=== PATIENT | female | born 1950 | race Caucasian/White ===

== ENCOUNTER → 2023-02-05 12:43 | Outpatient (REF) | payer MEDICARE, OTHER, SELFPAY ==
--- NOTE | 2023-02-05 12:52 | CA_ITS ---
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 Normal measured LV ejection fraction 60 65% with impaired relaxation filling pattern 2. Normal cardiac valvular Dopplers next 3. Normal RV systolic pressure 4. No gross pericardial effusion Findings Left Ventricle Normal left ventricular size, thickness, and systolic function. The visually estimated ejection fraction is between 60-65%. Spectral Doppler is indicative of an impaired relaxation filling pattern. E/E prime ratio is <8, consistent with normal filling pressures. Peak GLS is -14%, which is reduced Right Ventricle Normal right ventricular cavity size and systolic function. Atria Both atria are normal in size. There is no evidence of interatrial shunt. Aortic Valve Normal aortic valve structure and function. There is no aortic valve stenosis. There is no aortic valve regurgitation. Mitral Valve Normal mitral valve structure and function. There is trace mitral valve regurgitation. There is no mitral valve stenosis. Pulmonic Valve The pulmonic valve is likely normal. There is trace pulmonic valve regurgitation. Tricuspid Valve Normal tricuspid valve structure. There is trace tricuspid valve regurgitation. The right ventricular systolic pressure is normal. The right ventricular systolic pressure is 25 mmHg. Normal right atrial pressure. There is no evidence of pulmonary hypertension. Great Vessels All visible segments of the aorta are normal in size. The pulmonary artery was not well visualized. Venous The inferior vena cava is normal in size and collapses greater than 50% with inspiration. Pericardium/Pleural There is no evidence of pericardial effusion. Prior Study Comparison No prior study available for comparison. Measurements 2D Linear Measurements IVSd: 0.77 0.6-0.9/0.6-1.0 cm LVIDd: 4.14 3.9-5.3/4.2-5.9 cm LVIDd Index: 2.65 2.4-3.2/2.2-3.1 cm/m2 LVIDs: 2.82 2.0-3.6 cm LVPWd: 0.80 0.7-1.1 cm LA Diam: 2.80 2.7-3.8/3.0-4.0 cm LAIDs Index: 1.79 1.5-2.3 cm/m2 LV Mass: 119.11 67-162/88-224 g LV Mass Index: 76.35 43-95/49-115 g/m2 LVOT Diam: 2.10 3.0+(-)1.3 cm 2D Systolic Function EF 2C: 61.00 >55% Mitral Valve MV Pk E: 0.66 MV PK A: 0.87 MV Decel Time: 220.00 E/A: 0.80 E'Lateral: 3.81 E'Medial: 3.59 E/E' Med: 18.30 E/E' Lat: 17.20 PHT: 64.00 MVA PHT: 3.44 Decel [place]: 2.98 Aortic Valve AoV Pk Donald: 0.90 AoV Pk Grad: 3.00 KURTIS: 3.30 LVOT LVOT Pk Donald: 0.87 LVOT Mn Donald: 0.60 LVOT VTI: 0.19 LVOT Pk Grad: 3.00 LVOT Mn Grad: 2.00 LVOT Diam: 2.10 LVOT Area: 3.46 Diastolic Function MV Pk E: 0.66 MV Pk A: 0.87 E/A: 0.80 E'Medial: 3.59 E/E' Med: 18.30 E' Laterial: 3.81 E/E' Lat: 17.20 Right Ventricle TAPSE (mm): 18.40 TVS' Donald: 14.10 Tricuspid Valve TR Pk Donald: 2.34 TR Pk Grad: 22.00 RA Press: 3.00 RVSP: 25.00 Great Vessels Aorta Sinus of Valsalva: 3.10 2.0-3.5 cm Ao Asc: 3.20 2.1-3.4 cm Pulmonary Valve PV Pk Donald: 0.80 Peak PV Grad: 3.00 Updated in Other Vendor System with Status of Final Luís Garduno MD electronically signed on 02/05/2023 4:34:08 PM with status of Final
== END ==
LOC: HO.CARD 12:43
PROVIDERS: PCP Nurse Practitioner Family; Visit Provider Nurse Practitioner Family
DX: I10 Essential (primary) hypertension (principal); R06.02 Shortness of breath; R68.89 Other general symptoms and signs
CPT/HCPCS: 93306; 93356